=== PATIENT | male | born 1940 | race Caucasian/White ===

== ENCOUNTER 2018-04-25 09:12 | Emergency (ER) | payer MEDICARE, OTHER ==
[2018-04-25] MEDS ORDERED: traMADol TAB* 50 MG PO ONE (11:04)
[2018-04-25 11:31] LABS: Hematocrit 42 % (42-52); Hemoglobin 13.8 g/dl (14.0-18.0); Mean Corpuscular HGB Conc 33 g/dl (31-36); Mean Corpuscular Hemoglobin 30 pg (27-31); Mean Corpuscular Volume 89 fL (80-94); Mean Platelet Volume 7.6 um3 (7.4-10.4); Platelet Count 149 10^3/ul (150-450); Red Blood Count 4.67 10^6/ul (4.00-5.40); Red Cell Distribution Width 16 % (10.5-15); White Blood Count 9.1 10^3/ul (3.5-10.8)
[2018-04-25 11:50] LABS: EGFR Non-African American 52.7 (>60); Uric Acid 8.6 mg/dL (4.4-7.6)
[2018-04-25] MEDS ORDERED: predniSONE TAB* 10 MG PO ONE (12:07)
[2018-04-25] MEDS ORDERED: Colchicine* 0.6 MG TAB PO ONE (12:07)
--- NOTE | 2018-04-25 12:19 | RAD ---
HISTORY: ATRAUMATIC SWELLING COMPARISONS: None VIEWS: 3, Frontal, lateral, and oblique views of the right ankle FINDINGS: BONE DENSITY: Normal. BONES: There is a small corticated bone fragment consistent with remote avulsion injury of the medial malleolus. 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 ALIGNMENT: There is no dislocation. SOFT TISSUES: There is circumferential soft tissue swelling. OTHER FINDINGS: None. IMPRESSION: 1. OSTEOARTHRITIS. 2. SOFT TISSUE SWELLING. 3. NO ACUTE OSSEOUS INJURY. IF SYMPTOMS PERSIST, RECOMMEND REPEAT IMAGING.
--- NOTE | 2018-04-25 12:29 | ED ---
Lower Extremity - HPI Summary HPI Summary: This is scribe Christian Roberts documenting for attending Glen Joseph. A 77 y/o male accompanied by his daughter presents to ED c/o right foot pain. Upon entering the ED room, the patient is not in stretcher, but rather in a chair because he doesn't like the bed. In the ED room, the patient has a pulse of 71 BPM, O2 saturation of 98% and blood pressure of 101/59. According to the patient, he has been experiencing right foot pain/soreness since Thursday morning. He cannot walk on it and the pain is by the toe and back of foot, including with touch. He noted that he did not injure himself or anything, as he woke up Thursday with it. He stated that he didn't have any fevers, sweats, chills. SOB, CP, or any other joint pain, but his daughter stated that the patient has chills. Pt has 3-leg cane that he goes through his house with, but he stated that his right foot hurts with touch and cannot get much sleep from the pain. He noted that a month ago in his left foot he had gout and was given 3 small pills to take every day for 3 days, then another set (6 total pills). His MD didn't want to keep him on long-term because medication brings on kidney issues. As per daughter, the patient was on the medications last week , but the patient refused her statement. Additionally, the daughter noted that the patient has been exhausted from the whole situation as it has been going on for a while. It started with the wrist then to his left ankle and now they are here. Patient took nothing for current issue. Patient does not have access to walker. Patient can only take Tylenol. PMHx of gout, denies gout and seizure. I, Dr. Joseph, personally performed the services described in this documentation as scribed in my presence and it is both accurate and complete. - History of Current Complaint Chief Complaint: EDExtremityLower Stated Complaint: UNABLE TO WALK Time Seen by Provider: 04/25/18 09:47 Hx Obtained From: Patient, Family/Childcare Aide - Daughter Mechanism Of Injury: Unknown Onset of Pain: Immediate - Onset on Thursday Onset/Duration: Days Severity Initially: Severe Severity Currently: Severe Pain Intensity: 9 Pain Scale Used: 0-10 Numeric Timing: Constant Location: Is Discrete @ - Right foot Associated Signs And Symptoms: Positive: Negative Aggravating Factor(s): Standing, Ambulation Alleviating Factor(s): Nothing Able to Bear Weight: No - Allergies/Home Medications Allergies/Adverse Reactions: Allergies Allergy/AdvReac Type Severity Reaction Status Date / Time amoxicillin Allergy Hives Verified 04/25/18 09:17 ibuprofen Allergy See Comment Verified 04/25/18 12:05 Penicillins Allergy Hives Verified 04/25/18 09:17 Home Medications: Home Medications Warfarin TAB(*) [Coumadin TAB(*)] 4 mg PO DAILY 04/25/18 [History Confirmed ] Warfarin TAB(*) [Coumadin TAB(*)] 6 mg PO DAILY 04/25/18 [History Confirmed ] PMH/Surg Hx/FS Hx/Imm Hx Endocrine/Hematology History: Reports: Hx Anticoagulant Therapy - warfarin Denies: Hx Diabetes, Hx Thyroid Disease Cardiovascular History: Reports: Hx Hypercholesterolemia, Hx Hypertension, Other Cardiovascular Problems/Disorders - valve replacement 1994 Denies: Hx Congestive Heart Failure, Hx Pacemaker/ICD Respiratory History: Denies: Hx Asthma, Hx Chronic Obstructive Pulmonary Disease (COPD) History: Denies: Hx Renal Disease Sensory History: Comment Only: Hx Vision Problem - needs glasses Opthamlomology History: Comment Only: Hx Vision Problem - needs glasses Neurological History: Denies: Hx Dementia, Hx Seizures Psychiatric History: Denies: Hx Substance Abuse - Surgical History Surgery Procedure, Year, and Place: 1994-valve replacement - Immunization History Date of Tetanus Vaccine: UNSURE Date of Influenza Vaccine: 2011 Infectious Disease History: No Infectious Disease History: Denies: Hx Clostridium Difficile, Hx Hepatitis, Hx Human Immunodeficiency Virus (HIV), Hx Shingles, Hx Tuberculosis, Traveled Outside the [place] in Last 30 Days - Family History Known Family History: Positive: Other - Colon cancer Negative: Hypertension, Diabetes - Social History Alcohol Use: None Substance Use Type: Reports: None Smoking Status (MU): Former Smoker Review of Systems Positive: Other - POSITIVE: As per daughter, pt is exhausted from whole situation. Negative: Fever, Chills - Daughter stated that he has had chills, pt refused., Skin Diaphoresis Negative: Erythema Negative: Sore Throat Negative: Chest Pain Negative: Shortness Of Breath, Cough Negative: Abdominal Pain, Vomiting, Nausea Negative: dysuria, hematuria Negative: Myalgia, Edema Negative: Rash Neurological: Other - NEGATIVE: Dizziness. All Other Systems Reviewed And Are Negative: Yes Physical Exam - Summary Physical Exam Summary: Constitutional: Well-developed, Well-nourished, Alert. (-) Distressed Skin: Warm, Dry HENT: Normocephalic; Atraumatic Eyes: Conjunctiva normal Neck: Musculoskeletal ROM normal neck. (-) JVD, (-) Stridor, (-) Tracheal deviation Cardio: Rhythm regular, rate normal, Heart sounds normal; Intact distal pulses; The pedal pulses are 2+ and symmetric. Radial pulses are 2+ and symmetric. (-) Murmur Pulmonary/Chest wall: Effort normal. (-) Respiratory distress, (-) Wheezes, (-) Rales Abd: Soft, (-) epigastric tenderness, (-) Distension, (-) Guarding, (-) Rebound Musculoskeletal: Tenderness in the base of the first metatarsal of right foot. Right ankle warm to touch which is mildly swollen. Patient with active and passive ROM. Suspect recurrent gout. Lymph: (-) Cervical adenopathy Neuro: Alert, Oriented x3 Psych: Mood and affect Normal Triage Information Reviewed: Yes Vital Signs On Initial Exam: Initial Vitals Temp Pulse Resp BP Pulse Ox 96.8 F 75 18 99/54 95 04/25/18 09:17 04/25/18 09:17 04/25/18 09:17 04/25/18 09:17 04/25/18 09:17 Vital Signs Reviewed: Yes Diagnostics - Vital Signs Vital Signs Temp Pulse Resp BP Pulse Ox 04/25/18 12:07 67 27 108/67 97 04/25/18 12:00 64 26 96 04/25/18 11:37 59 26 103/65 96 04/25/18 11:07 69 26 122/75 97 04/25/18 11:00 58 35 97 04/25/18 10:37 66 28 101/59 96 04/25/18 10:07 63 25 83/51 94 04/25/18 10:00 71 28 94 04/25/18 09:37 27 85/54 04/25/18 09:36 15 04/25/18 09:17 96.8 F 75 18 99/54 95 - Laboratory Lab Results: Lab Results 04/25/18 04/25/18 Range/Units 11:17 11:17 WBC 9.1 (3.5-10.8) 10^3/ul RBC 4.67 (4.00-5.40) 10^6/ul Hgb 13.8 L (14.0-18.0) g/dl Hct 42 (42-52) % MCV 89 (80-94) fL MCH 30 (27-31) pg MCHC 33 (31-36) g/dl RDW 16 H (10.5-15) % Plt Count 149 L (150-450) 10^3/ul MPV 7.6 (7.4-10.4) um3 Sodium 137 (135-145) mmol/L Potassium 5.0 (3.5-5.0) mmol/L Chloride 103 (101-111) mmol/L Carbon Dioxide 29 (22-32) mmol/L Anion Gap 5 (2-11) mmol/L BUN 28 H (6-24) mg/dL Creatinine 1.32 H (0.67-1.17) mg/dL Est GFR ( Amer) 63.8 (>60) Est GFR (Non-Af Amer) 52.7 (>60) BUN/Creatinine Ratio 21.2 H (8-20) Glucose 244 H (70-100) mg/dL Uric Acid 8.6 H (4.4-7.6) mg/dL Calcium 9.2 (8.6-10.3) mg/dL Total Bilirubin 0.80 (0.2-1.0) mg/dL AST 28 (13-39) U/L ALT 30 (7-52) U/L Alkaline Phosphatase 75 (34-104) U/L C-Reactive Protein 67.76 H (<8.01) mg/L Total Protein 6.6 (6.4-8.9) g/dL Albumin 3.5 (3.2-5.2) g/dL Globulin 3.1 (2-4) g/dL Albumin/Globulin Ratio 1.1 (1-3) Result Diagrams: 04/25/18 11:17 04/25/18 11:17 Lab Statement: Any lab studies that have been ordered have been reviewed, and results considered in the medical decision making process. - Radiology ANKLE XR Radiology Interpretation Completed By: Radiologist - 1. OSTEOARTHRITIS. 2. SOFT TISSUE SWELLING. 3. NO ACUTE OSSEOUS INJURY. IF SYMPTOMS PERSIST, RECOMMEND REPEAT IMAGING. ED PHYSICIAN REVIEWED THIS RADIOLOGY REPORT. Re-Evaluation - Re-Evaluation First Eval Re-Evaluation Time: 12:21 Comment: Patient stated that his friend has wheel walker. Patient will get the device from his friend. Lower Extremity Course/Dx - Course Course Of Treatment: A 77 y/o male accompanied by his daughter presents to ED c/ o right foot pain. Upon entering the ED room, the patient is not in stretcher, but rather in a chair because he doesn't like the bed. In the ED room, the patient has a pulse of 71 BPM, O2 saturation of 98% and blood pressure of 101/ 59. An Ankle XR revealed 1. Osteoarthritis. 2. Soft tissue swelling. 3. No acute osseous injury. If symptoms persist, recommend repeat imaging. In the ED course, the patient recieved Deltasone, Ultram and Colcrys. During reevaluation , the patient stated that his friend has wheel walker. Patient will get the device from his friend. Patient will be discharged with a diagnosis of gouty arthritis of the right ankle/foot. Patient is to follow up with PCP in 2-3 days. Pt is agreeable with this plan. - Diagnoses Provider Diagnoses: Gouty arthritis of right foot Discharge - Sign-Out/Discharge Documenting (check all that apply): Patient Departure - DISCHARGE - Discharge Plan Condition: Stable Disposition: HOME Prescriptions: Colchicine* [Colcrys*] 0.6 mg PO DAILY #14 tab predniSONE TAB* [Deltasone 20 MG TAB*] 20 mg PO DAILY #5 tab Patient Education Materials: Gout (ED), Arthritis (ED) Referrals: Rommel Limon MD [Primary Care Provider] - 2 Days Additional Instructions: FOLLOW UP WITH PRIMARY CARE IN 2-3 DAYS. TAKE COLCRYS AND DELTASONE MEDICATION PRESCRIBED. RETURN TO ED FOR ANY NEW OR WORSENING SYMPTOMS.
[2018-04-25 13:26] VITALS: BP 105/66
== END 2018-04-25 13:27 | disposition home or self-care (01) ==
LOC: ED 09:12
DX: M10.9 Gout, unspecified (principal); M79.671 Pain in right foot; Z87.891 Personal history of nicotine dependence
CPT/HCPCS: 36415; 80053; 84550; 85027; 86140; 99283; A9270-GY; J7512

== ENCOUNTER 2022-08-27 15:57 | Inpatient (IN) ==
[2022-08-27 17:51] LABS: Hematocrit 37 % (42-52); Hemoglobin 11.7 g/dL (14.0-18.0); Mean Corpuscular HGB Conc 32 g/dL (31-36); Mean Corpuscular Hemoglobin 28 pg (27-31); Mean Corpuscular Volume 87 fL (80-94); Red Blood Count 4.26 10^6 /uL (4.18-5.48); Red Cell Distribution Width 18 % (10-15); White Blood Count 5.5 10^3/uL (3.5-10.8)
[2022-08-27] MEDS ORDERED: Furosemide 40 mg/4 ml IV VIAL IV ONE (17:51)
[2022-08-27 17:58] LABS: INR 6.48 (0.88-1.18)
[2022-08-27 18:14] LABS: Albumin 3.5 g/dL (3.2-5.2); Albumin/Globulin Ratio 1.5 (1-3); C Reactive Protein 26.67 mg/L (<8.01); Calcium 8.3 mg/dL (8.6-10.3); Digoxin 1.1 ng/ml (0.8-2.0); Globulin 2.4 g/dL (2-4); Total Bilirubin 1.2 mg/dL (0.2-1.0); Total Protein 5.9 g/dL (6.4-8.9); eGFR CKD-EPI 49.5 (>60)
[2022-08-27 18:19] LABS: ABS Eosinophils 0.2 10^3/ul (0-0.6); ABS Lymphocytes 1.1 10^3/ul (1.0-4.8); ABS Monocytes 0.5 10^3/ul (0-0.8); ABS Neutrophils 3.7 10^3/ul (1.5-7.7); Eosinophil % 2.9 %; Lymphocyte % 19.7 %; Mean Platelet Volume 7.8 fL (7.4-10.4); Platelet Count 88 10^3/uL (150-450)
[2022-08-27 18:26] LABS: Potassium 5.3 mmol/L (3.5-5.0)
[2022-08-27 18:28] LABS: TSH Ultra Thyroid Stim Horm 3.91 mcIU/mL (0.34-5.60)
[2022-08-27 18:54] LABS: High Sensitivity Troponin 1 Hr 13 pg/mL (<20)
[2022-08-28 07:30] LABS: Calcium 8.3 mg/dL (8.6-10.3); eGFR CKD-EPI 49.1 (>60)
[2022-08-28 08:18] LABS: INR 6.51 (0.88-1.18)
[2022-08-28] MEDS ORDERED: Potassium Chlor 10 meq TAB PO SCH (09:00)
[2022-08-28 10:00] LABS: Potassium 5.1 mmol/L (3.5-5.0)
[2022-08-28] MEDS ORDERED: Furosemide 40 mg/4 ml IV VIAL IV ONE (10:36)
[2022-08-28 12:58] VITALS: BP 104/64
== END 2022-08-28 16:16 | disposition home or self-care (01) | DRG 291 ==
LOC: ED 15:57 → EDHOLD 20:11 → MEDTELE 08-28 03:36
PROVIDERS: ADMIT Internal Medicine; ATTEND Internal Medicine

== ENCOUNTER 2022-10-18 15:53 | Inpatient (IN) ==
[2022-10-18] MEDS ORDERED: NS 0.9% 500 ml BAG 500 ML IV ONE ×2 (16:27→18:07)
[2022-10-18 16:50] LABS: ABS Eosinophils 0.1 10^3/ul (0-0.6); ABS Lymphocytes 1.9 10^3/ul (1.0-4.8); ABS Monocytes 0.8 10^3/ul (0-0.8); ABS Neutrophils 4.9 10^3/ul (1.5-7.7); Eosinophil % 0.8 %; Hematocrit 42 % (42-52); Lymphocyte % 24.5 %; Mean Corpuscular HGB Conc 33 g/dL (31-36); Mean Corpuscular Hemoglobin 29 pg (27-31); Mean Corpuscular Volume 87 fL (80-94); Mean Platelet Volume 7.6 fL (7.4-10.4); Platelet Count 109 10^3/uL (150-450); Red Blood Count 4.87 10^6 /uL (4.18-5.48); Red Cell Distribution Width 18 % (10-15); White Blood Count 7.6 10^3/uL (3.5-10.8)
[2022-10-18 17:17] LABS: Activated Partial Thrombo Time 38.9 seconds (26.0-38.0); INR 2.25 (0.88-1.18)
[2022-10-18 17:29] LABS: Albumin 3.9 g/dL (3.2-5.2); Albumin/Globulin Ratio 1.3 (1-3); C Reactive Protein 24.41 mg/L (<8.01); Calcium 9.3 mg/dL (8.6-10.3); Creatinine, Serum 4.13 mg/dL (0.67-1.17); Digoxin 2.2 ng/ml (0.8-2.0); Total Bilirubin 1.2 mg/dL (0.2-1.0); Total Protein 6.9 g/dL (6.4-8.9); eGFR CKD-EPI 13.9 (>60)
[2022-10-18 17:38] LABS: Potassium 6.7 mmol/L (3.5-5.0)
[2022-10-18] MEDS ORDERED: SODIUM ZIRCONIUM CYCLOSILICATE 10 GM PACKET PO ONE (17:43)
[2022-10-18] MEDS ORDERED: Albuterol 2.5mg/3 ml (0.083%) NEB.SOLN INH ONE (17:56)
[2022-10-18] MEDS ORDERED: Dextrose 50% Syringe 50 ml 25 GM/50 ML SYRINGE IV PUSH PRN (17:56)
[2022-10-18] MEDS ORDERED: Calcium Gluconate 1 GM/10 ML VIAL (in Pyxis) IV PUSH ONE (17:56)
[2022-10-18] MEDS ORDERED: Sodium Polystyrene ORAL.SUSP 15 GM/60 ML BTL PO ONE (18:15)
[2022-10-18] MEDS ORDERED: Dextrose 50% Syringe 50 ml 25 GM/50 ML SYRINGE IV PUSH ONE (18:17)
[2022-10-18] MEDS ORDERED: Acetaminophen IV 1 GM/100ML 1,000 MG/100 ML BAG IV ONE (18:26)
[2022-10-18 18:37] LABS: High Sensitivity Troponin 1 Hr 53 pg/mL (<20)
[2022-10-18] MEDS: NS 0.9% 1000 ml BAG 1,000 ML IV SCH (18:54)
[2022-10-18] MEDS ORDERED: NS 0.9% 1000 ml BAG 1,000 ML IV ONE (19:31)
[2022-10-18 20:00] LABS: Magnesium 2.9 mg/dL (1.9-2.7); Phosphorus 6.7 mg/dL (2.5-5.0)
[2022-10-18] MEDS ORDERED: Warfarin per PHARMACY **NOTE FOLLOW UP SCH (20:00)
[2022-10-18 21:39] LABS: Calcium 9.2 mg/dL (8.6-10.3); Creatinine, Serum 3.67 mg/dL (0.67-1.17)
[2022-10-18 21:45] LABS: Potassium 5.2 mmol/L (3.5-5.0)
[2022-10-18 22:30] LABS: Urine Appearance Cloudy; Urine Bilirubin Negative (Negative); Urine Blood Negative (Negative); Urine Color Yellow; Urine Glucose Negative (Negative); Urine Ketones Negative (Negative); Urine Nitrite Negative (Negative); Urine Protein Negative (Negative); Urine Specific Gravity 1.009 (1.002-1.030); Urine Urobilinogen Negative (Negative)
[2022-10-18 22:34] LABS: Urine Creatinine Concentration 59.66 mg/dL
[2022-10-19 03:00] LABS: Calcium 8.8 mg/dL (8.6-10.3); Creatinine, Serum 3.21 mg/dL (0.67-1.17); Potassium 4.8 mmol/L (3.5-5.0); eGFR CKD-EPI 18.8 (>60)
[2022-10-19] MEDS: NS 0.9% 1000 ml BAG 1,000 ML IV SCH (05:07)
[2022-10-19 05:11] LABS: ABS Eosinophils 0.1 10^3/ul (0-0.6); ABS Lymphocytes 1.7 10^3/ul (1.0-4.8); ABS Monocytes 0.7 10^3/ul (0-0.8); ABS Neutrophils 4.9 10^3/ul (1.5-7.7); Hematocrit 40 % (42-52); Hemoglobin 13.1 g/dL (14.0-18.0); Lymphocyte % 22.9 %; Mean Corpuscular HGB Conc 33 g/dL (31-36); Mean Corpuscular Hemoglobin 28 pg (27-31); Mean Corpuscular Volume 88 fL (80-94); Mean Platelet Volume 7.4 fL (7.4-10.4); Nucleated Red Blood Cells % 0.1; Platelet Count 105 10^3/uL (150-450); Red Cell Distribution Width 18 % (10-15); White Blood Count 7.5 10^3/uL (3.5-10.8)
[2022-10-19 05:27] LABS: INR 2.85 (0.88-1.18)
[2022-10-19 05:39] LABS: Calcium 8.7 mg/dL (8.6-10.3); Creatinine, Serum 3.06 mg/dL (0.67-1.17); Digoxin 1.1 ng/ml (0.8-2.0); Magnesium 2.5 mg/dL (1.9-2.7); Potassium 4.8 mmol/L (3.5-5.0); eGFR CKD-EPI 19.9 (>60)
[2022-10-19] MEDS ORDERED: NS 0.9% 1000 ml BAG 1,000 ML IV SCH (08:43)
[2022-10-19] MEDS ORDERED: Lactated Ringers 1000 ml BAG 500 ML IV ONE (15:01)
[2022-10-19] MEDS: Dextran 70/Hypromellose Tears Eye Drops 15 ml BTL (for Artificials Tears) RIGHT EYE SCH ×3 (15:22→21:19)
[2022-10-19] MEDS: Warfarin DAILY REMINDER **NOTE FOLLOW UP SCH (17:36)
[2022-10-20] MEDS: Dextran 70/Hypromellose Tears Eye Drops 15 ml BTL (for Artificials Tears) RIGHT EYE SCH ×7 (01:17→21:48)
[2022-10-20 06:41] LABS: ABS Eosinophils 0.1 10^3/ul (0-0.6); ABS Lymphocytes 1.6 10^3/ul (1.0-4.8); ABS Neutrophils 6.4 10^3/ul (1.5-7.7); Eosinophil % 1.3 %; Hematocrit 39 % (42-52); Lymphocyte % 17.5 %; Mean Corpuscular HGB Conc 33 g/dL (31-36); Mean Corpuscular Hemoglobin 29 pg (27-31); Mean Corpuscular Volume 87 fL (80-94); Mean Platelet Volume 7.8 fL (7.4-10.4); Platelet Count 107 10^3/uL (150-450); Red Blood Count 4.53 10^6 /uL (4.18-5.48); Red Cell Distribution Width 18 % (10-15)
[2022-10-20 06:45] LABS: INR 3.22 (0.88-1.18)
[2022-10-20 06:59] LABS: Calcium 8.3 mg/dL (8.6-10.3); Creatinine, Serum 1.76 mg/dL (0.67-1.17); Magnesium 2.1 mg/dL (1.9-2.7); Potassium 4.9 mmol/L (3.5-5.0); eGFR CKD-EPI 38.6 (>60)
[2022-10-20] MEDS ORDERED: Lactated Ringers 1000 ml BAG 1,000 ML IV SCH (10:00)
[2022-10-20] MEDS: Warfarin DAILY REMINDER **NOTE FOLLOW UP SCH (17:20)
[2022-10-21] MEDS: Dextran 70/Hypromellose Tears Eye Drops 15 ml BTL (for Artificials Tears) RIGHT EYE SCH ×6 (03:00→20:34)
[2022-10-21 06:54] LABS: ABS Eosinophils 0.2 10^3/ul (0-0.6); ABS Lymphocytes 1.8 10^3/ul (1.0-4.8); ABS Neutrophils 5.4 10^3/ul (1.5-7.7); Eosinophil % 2.2 %; Hematocrit 38 % (42-52); Hemoglobin 12.5 g/dL (14.0-18.0); Lymphocyte % 21.3 %; Mean Corpuscular HGB Conc 33 g/dL (31-36); Mean Corpuscular Hemoglobin 29 pg (27-31); Mean Corpuscular Volume 87 fL (80-94); Mean Platelet Volume 7.2 fL (7.4-10.4); Nucleated Red Blood Cells % 0.1; Platelet Count 100 10^3/uL (150-450); Red Blood Count 4.34 10^6 /uL (4.18-5.48); Red Cell Distribution Width 18 % (10-15); White Blood Count 8.4 10^3/uL (3.5-10.8)
[2022-10-21 07:00] LABS: INR 4.03 (0.88-1.18)
[2022-10-21 07:36] LABS: Calcium 8.3 mg/dL (8.6-10.3); Creatinine, Serum 1.38 mg/dL (0.67-1.17); Potassium 5.1 mmol/L (3.5-5.0); eGFR CKD-EPI 51.7 (>60)
[2022-10-21] MEDS ORDERED: SODIUM ZIRCONIUM CYCLOSILICATE 10 GM PACKET PO ONE (07:39)
[2022-10-21] MEDS ORDERED: Warfarin - No Order Today **NOTE FOLLOW UP ONE (17:00)
[2022-10-21] MEDS: Warfarin DAILY REMINDER **NOTE FOLLOW UP SCH (18:28)
[2022-10-22] MEDS: Dextran 70/Hypromellose Tears Eye Drops 15 ml BTL (for Artificials Tears) RIGHT EYE SCH ×6 (02:25→20:28)
[2022-10-22 07:40] LABS: ABS Eosinophils 0.3 10^3/ul (0-0.6); ABS Lymphocytes 1.8 10^3/ul (1.0-4.8); ABS Monocytes 0.8 10^3/ul (0-0.8); ABS Neutrophils 4.9 10^3/ul (1.5-7.7); Eosinophil % 3.9 %; Hematocrit 36 % (42-52); Hemoglobin 11.9 g/dL (14.0-18.0); Lymphocyte % 23.2 %; Mean Corpuscular HGB Conc 33 g/dL (31-36); Mean Corpuscular Hemoglobin 29 pg (27-31); Mean Corpuscular Volume 88 fL (80-94); Mean Platelet Volume 7.7 fL (7.4-10.4); Platelet Count 105 10^3/uL (150-450); Red Blood Count 4.11 10^6 /uL (4.18-5.48); Red Cell Distribution Width 18 % (10-15); White Blood Count 7.9 10^3/uL (3.5-10.8)
[2022-10-22 07:44] LABS: INR 3.3 (0.88-1.18)
[2022-10-22 07:53] LABS: Calcium 8.1 mg/dL (8.6-10.3); Creatinine, Serum 1.57 mg/dL (0.67-1.17); eGFR CKD-EPI 44.3 (>60)
[2022-10-22] MEDS ORDERED: Digoxin IV 0.5 MG/2 ML AMP (0.25 MG/ML) IV SLOW PU ONE (16:43)
[2022-10-22] MEDS: Warfarin DAILY REMINDER **NOTE FOLLOW UP SCH (18:12)
[2022-10-23] MEDS: Dextran 70/Hypromellose Tears Eye Drops 15 ml BTL (for Artificials Tears) RIGHT EYE SCH ×6 (02:07→20:47)
[2022-10-23 06:36] LABS: INR 1.92 (0.88-1.18)
[2022-10-23 06:42] LABS: Calcium 8.3 mg/dL (8.6-10.3); Creatinine, Serum 1.26 mg/dL (0.67-1.17); eGFR CKD-EPI 57.7 (>60)
[2022-10-23 06:47] LABS: Potassium 5.1 mmol/L (3.5-5.0)
[2022-10-23] MEDS ORDERED: SODIUM ZIRCONIUM CYCLOSILICATE 10 GM PACKET PO ONE (07:21)
[2022-10-23] MEDS: Enoxaparin 100 MG/ML SYR SUBCUT SCH ×2 (11:17→20:46)
[2022-10-23] MEDS: Warfarin DAILY REMINDER **NOTE FOLLOW UP SCH (17:33)
[2022-10-24] MEDS: Dextran 70/Hypromellose Tears Eye Drops 15 ml BTL (for Artificials Tears) RIGHT EYE SCH ×6 (02:41→21:28)
[2022-10-24 06:17] LABS: INR 2.11 (0.88-1.18)
[2022-10-24 07:53] LABS: Calcium 8.3 mg/dL (8.6-10.3); Potassium 5.3 mmol/L (3.5-5.0)
[2022-10-24 07:54] LABS: Creatinine, Serum 1.37 mg/dL (0.67-1.17); eGFR CKD-EPI 52.1 (>60)
[2022-10-24] MEDS ORDERED: SODIUM ZIRCONIUM CYCLOSILICATE 10 GM PACKET PO ONE ×3 (08:03→19:30)
[2022-10-24] MEDS: Enoxaparin 100 MG/ML SYR SUBCUT SCH ×2 (10:56→21:29)
[2022-10-24] MEDS: Warfarin DAILY REMINDER **NOTE FOLLOW UP SCH (17:49)
[2022-10-24 21:30] LABS: Calcium 8.2 mg/dL (8.6-10.3); Creatinine, Serum 1.31 mg/dL (0.67-1.17); Potassium 4.9 mmol/L (3.5-5.0)
[2022-10-25] MEDS: Dextran 70/Hypromellose Tears Eye Drops 15 ml BTL (for Artificials Tears) RIGHT EYE SCH ×3 (01:37→10:03)
[2022-10-25 04:17] LABS: Calcium 8.3 mg/dL (8.6-10.3); Potassium 4.4 mmol/L (3.5-5.0)
[2022-10-25 04:26] LABS: Creatinine, Serum 1.18 mg/dL (0.67-1.17); eGFR CKD-EPI 62.4 (>60)
[2022-10-25 07:44] LABS: INR 2.07 (0.88-1.18)
[2022-10-25 07:44] LABS: ABS Eosinophils 0.1 10^3/ul (0-0.6); ABS Lymphocytes 1.4 10^3/ul (1.0-4.8); ABS Monocytes 0.5 10^3/ul (0-0.8); ABS Neutrophils 6.1 10^3/ul (1.5-7.7); Eosinophil % 1.1 %; Hematocrit 36 % (42-52); Lymphocyte % 17.2 %; Mean Corpuscular HGB Conc 34 g/dL (31-36); Mean Corpuscular Hemoglobin 30 pg (27-31); Mean Corpuscular Volume 89 fL (80-94); Mean Platelet Volume 7.9 fL (7.4-10.4); Nucleated Red Blood Cells % 0.2; Platelet Count 118 10^3/uL (150-450); Red Cell Distribution Width 19 % (10-15); White Blood Count 8.1 10^3/uL (3.5-10.8)
[2022-10-25 08:01] LABS: Calcium 8.4 mg/dL (8.6-10.3); Creatinine, Serum 1.17 mg/dL (0.67-1.17); Potassium 4.2 mmol/L (3.5-5.0)
[2022-10-25] MEDS: Enoxaparin 100 MG/ML SYR SUBCUT SCH (09:48)
[2022-10-25 11:04] VITALS: BP 99/59
== END 2022-10-25 14:30 | disposition home or self-care (01) | DRG 683 ==
LOC: ED 15:53 → EDHOLD 18:39 → ICU 19:53 → MED 10-20 03:08
PROVIDERS: ADMIT Internal Medicine Critical Care Medicine; ATTEND Internal Medicine